=== PATIENT | female | born 2000 ===

== ENCOUNTER 2022-05-17 19:54 | Outpatient (CLI) | payer OTHER ==
[2022-05-17] MEDS ORDERED: LACTATED RINGERS 1,000 ML IV ONE (23:51)
[2022-05-17] MEDS ORDERED: BENZOCAINE/MENTHOL 20/0.5% TOP SPRAY 56 GM TP PRN (23:56)
== END 2022-05-18 00:25 | disposition home or self-care (01) ==
LOC: TRG 19:54 → APU 19:58 → TRG 05-18 00:25
PROVIDERS: ATTEND Obstetrics & Gynecology
DX: O42.92 Full-term premature rupture of membranes, unspecified as to length of time between rupture and onset of labor (principal); O26.893 Other specified pregnancy related conditions, third trimester; R10.2 Pelvic and perineal pain; Z3A.30 30 weeks gestation of pregnancy
CPT/HCPCS: 59025

== ENCOUNTER 2022-06-02 20:10 | Outpatient (CLI) | payer OTHER ==
[2022-06-02] MEDS ORDERED: LACTATED RINGERS 500 ML IV ONE (22:00)
[2022-06-02 23:01] LABS: Bacteria,Urine 3+ /HPF (Negative); Bilirubin,Urine Moderate (Negative); Color,Urine Colorless (Yellow); Hyaline Casts,Urine 1 /LPF; Mucus,Urine FEW /HPF
[2022-06-02 23:02] LABS: Blood,Urine Small (Negative); PH,Urine 7.5 (5.0-7.0); Protein,Urine <15 mg/dL mg/dL (Negative); Urobilinogen,Urine 0.2 mg/dL (<2.0)
[2022-06-02 23:04] LABS: Ictotest,Urine Negative (Negative)
== END 2022-06-02 23:25 | disposition home or self-care (01) ==
LOC: TRG 20:10 → APU 20:13 → TRG 23:25
PROVIDERS: ATTEND Obstetrics & Gynecology
DX: O47.03 False labor before 37 completed weeks of gestation, third trimester (principal); Z3A.32 32 weeks gestation of pregnancy
CPT/HCPCS: 36415; 59025; 81001; 84112; 87086

== ENCOUNTER 2022-07-22 19:17 | Inpatient (IN) | payer OTHER ==
--- NOTE | 2022-07-22 20:49 | History and Physical Report ---
History of Present Illness Date of examination: 07/22/22 Date of admission: 07/22/22 19:17 History of present illness: Patient presents to the office this a.m. with complaints of decreased movement patient with a nonreactive NST and has been admitted for labor induction at 40 weeks. Menstrual History Regularity: irregular Duration: 5-7 LMP: 10/15/2021 LMP reliability: definite LMP character: normal test type: urine test Date: 12/22/2021 BC at conception: none Planned ? no EDC Calculations LMP: 07/22/2022 EDC Confirmation: 07/22/2022 Past History : 3 Term Births: 2 Premature Births: 0 Living Children: 2 Para: 2 Mult. Births: 0 Prev : 0 Prev. attempt? 0 Aborta: 0 Elect. Ab: 0 Spont. Ab: 0 Ectopics: 0 # 1 Delivery date: 2019 Weeks Gestation: 37 labor: no Delivery type: Hours of labor: 12 Anesthesia type: epidural weight: 6lbs # 2 Delivery date: 2020 Weeks Gestation: 41 labor: no Delivery type: Hours of labor: 12 Anesthesia type: epidural weight: 6lbs Past Medical History: Negative Past Medical History Past Surgical History: negative Family History Summary: First Degree Blood Relative - Has No Known Family History - Entered On: 12/22/2021 Social History: Patient is single Smoking History: Patient has never smoked. Risk Factors: Smoked Tobacco Use: Never smoker Smokeless Tobacco Use: Never Passive Smoke Exposure: no HIV High Risk Behavior: no Exercise: no Seatbelt Use: 100 % No Dietary Counseling Reason: pn yes Alcohol Use: no Drug Use: no Past Medical History Anesthesia Complications: negative Anemia: negative Autoimmune Disorder: negative Bleeding Disorder: negative Blood Transfusions: negative Breast Disease: negative Diabetes: negative Heart Disease: negative Hypertension: negative Hepatitis/Liver Disease: negative Kidney Disease/UTI: negative Neurologic/Epilepsy/Migraines: negative Phlebitis/Varicosities: negative Psychiatric: negative Pulmonary Disease/Asthma: negative Thyroid Disease: negative Hospitalizations: negative Surgery (Non-batchmaker): negative Abnormal PAP: negative DELORES Exposure: negative Infertility: negative Uterine Anomaly: negative Uterine Surgery (not C/S): negative Other Gynecologic Problems: negative Social Hx: Patient is single Smoking History: Patient has never smoked. Infection History Hx of STD: none HIV Risk Eval: no Personal hx. of genital herpes: no Partner hx. of genital herpes: no Rash, Viral, or Febrile illness since last LMP? no Genetic History Congenital Heart Defect: Mom: no Dad: no Devaughn Disease: Mom: no Dad: no Thalassemia Mom: no Dad: no Neural Tube Defect Mom: no Dad: no Down's Syndrome Mom: no Dad: no Steven-Sachs Mom: no Dad: no Sickle Cell Disease/Trait Mom: no Dad: no Hemophilia Mom: no Dad: no Muscular Dystrophy Mom: no Dad: no Cystic Fibrosis Mom: no Dad: no [place] Chorea Mom: no Dad: no Mental Retardation Mom: no Dad: no Fragile X Mom: no Dad: no Other Genetic/Chromosomal Disorder Mom: no Dad: no Child w/other defect Mom: no Dad: no Enviromental Exposures Xray Exposure: no Medication, drug, or alcohol use since LMP: no Chemical/Other Exposure: no Exposure to Cat Liter: no Hx of Parvovirus (Fifth Disease): no Occupational Exposure to Children: none Active Medications (reviewed today): ondansetron 8 mg tablet,disintegrating (ondansetron) 1 tablet by mouth every twelve hours Plus 29 mg iron- 1 mg tablet (pnv,calcium 72-iron,carb-folic) 1 tablet by mouth once a day Current Allergies (reviewed today): No known allergies Past History Past Medical History: other (SEE HPI) [employer]ACH History: other (SEE HPI) Family/Genetic History: other (SEE HPI) Social history: other (SEE HPI) - Obstetrical History Expected Date of Delivery: 07/15/22 Actual Gestation: 41 Week(s) 0 Day(s) : 3 Para: 2 Hx # Term Pregnancies: 2 Number of Pregnancies: 0 Spontaneous Abortions: 0 Induced : 0 Number of Living Children: 2 Medications and Allergies Allergies Allergy/AdvReac Type Severity Reaction Status Date / Time No Known Allergies Allergy Unverified 02/03/22 22:54 Home Medications Medication Instructions Recorded Confirmed Last Taken Type Acetaminophen [Tylenol] 500 mg PO Q6HR PRN #30 tablet 02/04/22 Unknown Rx Benzocaine/Menthol [Dermoplast] 200 spray TP TID #1 can 05/17/22 Unknown Rx Lidocain2.5%/Prilocai2.5% [Emla] 5 gm TP BID #1 tube 05/17/22 Unknown Rx Terconazole [Terazol 7] 45 gm VG HS #3 05/18/22 Unknown Rx - Vital Signs Vital signs: Vital Signs Pulse BP Pulse Ox 85 120/60 98 07/22/22 19:38 07/22/22 19:38 07/22/22 19:38 Temp Pulse Resp BP Pulse Ox 98.1 F 99 H 14 101/59 96 07/22/22 19:41 07/22/22 20:43 07/22/22 19:41 07/22/22 20:41 07/22/22 20:43 - Physical Exam Breasts: Positive: deferred Cardiovascular: Regular rate Lungs: Positive: Normal air movement Abdomen: Positive: normal appearance, soft Vagina: Positive: normal moisture. Negative: discharge Extremities: Positive: edema - Obstetrical Uterine Contraction Monitor Mode: Palpation Uterine Contraction Pattern: Absent Uterine Tone Measurement Phase: Resting Results Result Diagrams: 07/22/22 20:00 All other labs normal. Assessment and Plan - Patient Problems (1) Decreased movement Current Visit: Yes Status: Acute Qualifiers: Fetus number: single or unspecified fetus Trimester: third trimester Bubba lified Code(s): O36.8130 - Decreased movements, third trimester, not applicable or unspecified Plan to address problem: Patient be admitted for serial induction. She will receive Cervidil this evening with plans of starting Pitocin in a.m. per protocol. We will watch her on tracing closely. (2) 40 weeks gestation of Current Visit: Yes Status: Acute (3) Abnormal test Current Visit: Yes Status: Acute
[2022-07-22] MEDS ORDERED: DINOPROSTONE 10 MG VAG SUPP VG ONE (20:50)
[2022-07-22] MEDS ORDERED: LIDOCAINE (2%) 20 MG/1 ML VIAL 20 ML MDV INFILTRATI ONE (20:50)
[2022-07-22] MEDS ORDERED: BUTORPHANOL 2 MG/1 ML INJ IV PRN ×2 (20:50)
[2022-07-22] MEDS ORDERED: TERBUTALINE 1 MG/1 ML INJ SUB-Q PRN (20:50)
[2022-07-22] MEDS ORDERED: ACETAMINOPHEN 325 MG TAB PO PRN (20:50)
[2022-07-22] MEDS ORDERED: PROMETHAZINE 25 MG TAB PO PRN (20:50)
[2022-07-22] MEDS ORDERED: ePHEDrine SULFATE 50 MG/1 ML INJ IV PRN (20:50)
[2022-07-22] MEDS ORDERED: MINERAL OIL 30 ML ORAL LIQD PO PRN (20:50)
[2022-07-22] MEDS ORDERED: LACTATED RINGERS 1,000 ML IV SCH (21:00)
[2022-07-22] MEDS ORDERED: OXYTOCIN DRIP 30 UNITS/500 ML BAG IV SCH (21:00)
[2022-07-22 21:50] LABS: Hematocrit 38.1 % (30.3-42.9); Mean Corpuscular HGB Conc 34 % (30-34); Mean Corpuscular Volume 88 fl (79-97); Platelet Count 260 K/mm3 (140-440); Red Blood Count 4.33 M/mm3 (3.65-5.03); Red Cell Distribution Width 15.1 % (13.2-15.2)
--- NOTE | 2022-07-23 08:38 | Progress Note ---
Assessment and Plan Cervidil removed, plan for AM care and breakfast, then start pitocin. - Patient Problems (1) 40 weeks gestation of Current Visit: Yes Status: Acute (2) Abnormal test Current Visit: Yes Status: Acute Subjective - Subjective Date of service: 07/23/22 Principal diagnosis: IUP @ 40+1; IOL decreasedFM Patient reports: movement normal, contractions Objective - Vital Signs Vital Signs: Vital Signs - 12hr 07/22/22 07/22/22 07/22/22 20:38 20:41 20:43 Temperature Pulse Rate 89 84 99 H Respiratory Rate Blood Pressure 101/59 O2 Sat by Pulse 97 96 Oximetry 07/22/22 07/22/22 07/22/22 20:48 20:53 20:58 Temperature Pulse Rate 99 H 86 85 Respiratory Rate Blood Pressure O2 Sat by Pulse 97 96 97 Oximetry 07/22/22 07/22/22 07/22/22 21:03 21:08 21:10 Temperature Pulse Rate 91 H 82 80 Respiratory Rate Blood Pressure 109/62 O2 Sat by Pulse 96 97 Oximetry 07/22/22 07/22/22 07/22/22 21:13 21:18 21:23 Temperature Pulse Rate 93 H 76 87 Respiratory Rate Blood Pressure O2 Sat by Pulse 97 96 97 Oximetry 07/22/22 07/22/22 07/22/22 21:28 21:42 21:44 Temperature Pulse Rate 80 85 81 Respiratory Rate Blood Pressure 113/64 O2 Sat by Pulse 96 99 Oximetry 07/22/22 07/22/22 07/22/22 21:47 21:52 21:57 Temperature Pulse Rate 85 82 89 Respiratory Rate Blood Pressure O2 Sat by Pulse 96 96 96 Oximetry 07/22/22 07/22/22 07/22/22 22:02 22:07 22:12 Temperature Pulse Rate 86 95 H 80 Respiratory Rate Blood Pressure O2 Sat by Pulse 96 96 96 Oximetry 07/22/22 07/22/22 07/22/22 22:14 22:17 22:22 Temperature Pulse Rate 86 88 87 Respiratory Rate Blood Pressure 109/57 O2 Sat by Pulse 96 97 Oximetry 07/22/22 07/22/22 07/22/22 22:27 22:32 22:37 Temperature Pulse Rate 86 87 83 Respiratory Rate Blood Pressure O2 Sat by Pulse 97 97 97 Oximetry 07/22/22 07/22/2222 22:42 22:46 22:47 Temperature Pulse Rate 83 84 99 H Respiratory Rate Blood Pressure 109/58 O2 Sat by Pulse 97 97 Oximetry 07/22/22 07/22/22 07/22/22 22:52 22:57 23:02 Temperature Pulse Rate 83 91 H 89 Respiratory Rate Blood Pressure O2 Sat by Pulse 97 97 97 Oximetry 07/22/22 07/22/22 07/22/22 23:07 23:12 23:14 Temperature Pulse Rate 97 H 90 81 Respiratory Rate Blood Pressure 109/60 O2 Sat by Pulse 97 97 Oximetry 07/22/22 07/22/22 07/22/22 23:17 23:22 23:27 Temperature Pulse Rate 80 89 87 Respiratory Rate Blood Pressure O2 Sat by Pulse 97 96 97 Oximetry 07/22/22 07/22/22 07/22/22 23:32 23:37 23:40 Temperature 98 F Pulse Rate 81 103 H Respiratory 16 Rate Blood Pressure O2 Sat by Pulse 96 96 99 Oximetry 07/22/22 07/22/22 07/22/22 23:42 23:45 23:47 Temperature Pulse Rate 95 H 83 79 Respiratory Rate Blood Pressure 101/56 O2 Sat by Pulse 97 97 Oximetry 07/22/22 07/22/22 07/23/22 23:52 23:57 00:02 Temperature Pulse Rate 88 103 H 91 H Respiratory Rate Blood Pressure O2 Sat by Pulse 97 96 97 Oximetry 07/23/22 07/23/22 07/23/22 00:07 00:12 00:16 Temperature Pulse Rate 93 H 85 78 Respiratory Rate Blood Pressure 105/57 O2 Sat by Pulse 98 97 Oximetry 07/23/22 07/23/22 07/23/22 00:17 00:22 00:27 Temperature Pulse Rate 92 H 85 98 H Respiratory Rate Blood Pressure O2 Sat by Pulse 97 96 96 Oximetry 07/23/22 07/23/22 07/23/22 00:32 00:37 00:42 Temperature Pulse Rate 97 H 87 91 H Respiratory Rate Blood Pressure O2 Sat by Pulse 97 97 96 Oximetry 07/23/22 07/23/22 07/23/22 00:44 00:47 00:52 Temperature Pulse Rate 86 91 H 95 H Respiratory Rate Blood Pressure 113/64 O2 Sat by Pulse 97 97 Oximetry 07/23/22 07/23/22 07/23/22 00:57 01:02 01:07 Temperature Pulse Rate 106 H 98 H 99 H Respiratory Rate Blood Pressure O2 Sat by Pulse 97 97 98 Oximetry 07/23/22 07/23/22 07/23/22 01:12 01:16 01:17 Temperature Pulse Rate 87 100 H 102 H Respiratory Rate Blood Pressure 114/78 O2 Sat by Pulse 96 97 Oximetry 07/23/22 07/23/22 07/23/22 01:22 01:27 01:32 Temperature Pulse Rate 83 89 92 H Respiratory Rate Blood Pressure O2 Sat by Pulse 96 96 97 Oximetry 07/23/22 07/23/22 07/23/22 01:37 01:42 01:44 Temperature Pulse Rate 91 H 86 98 H Respiratory Rate Blood Pressure 122/62 O2 Sat by Pulse 97 96 Oximetry 07/23/22 07/23/22 07/23/22 01:47 01:52 01:57 Temperature Pulse Rate 98 H 87 81 Respiratory Rate Blood Pressure O2 Sat by Pulse 95 95 96 Oximetry 07/23/22 07/23/22 07/23/22 02:02 02:07 02:12 Temperature Pulse Rate 94 H 88 81 Respiratory Rate Blood Pressure O2 Sat by Pulse 96 96 95 Oximetry 07/23/22 07/23/22 07/23/22 02:14 02:17 02:22 Temperature Pulse Rate 83 94 H 90 Respiratory Rate Blood Pressure 113/68 O2 Sat by Pulse 97 97 Oximetry 07/23/22 07/23/22 07/23/22 02:27 02:32 02:37 Temperature Pulse Rate 87 85 78 Respiratory Rate Blood Pressure O2 Sat by Pulse 96 96 96 Oximetry 07/23/22 07/23/22 07/23/22 02:42 02:44 02:47 Temperature Pulse Rate 86 75 82 Respiratory Rate Blood Pressure 91/52 O2 Sat by Pulse 96 97 Oximetry 07/23/22 07/23/22 07/23/22 02:52 02:57 03:02 Temperature Pulse Rate 78 82 83 Respiratory Rate Blood Pressure O2 Sat by Pulse 96 96 96 Oximetry 07/23/22 07/23/22 07/23/22 03:07 03:12 03:15 Temperature Pulse Rate 86 82 90 Respiratory Rate Blood Pressure 92/54 O2 Sat by Pulse 95 96 Oximetry 07/23/22 07/23/22 07/23/22 03:17 03:22 03:27 Temperature Pulse Rate 79 87 80 Respiratory Rate Blood Pressure O2 Sat by Pulse 97 97 98 Oximetry 07/23/22 07/23/22 07/23/22 03:32 03:37 03:42 Temperature Pulse Rate 84 85 83 Respiratory Rate Blood Pressure O2 Sat by Pulse 97 97 97 Oximetry 07/23/22 07/23/22 07/23/22 03:46 03:47 03:52 Temperature Pulse Rate 79 97 H 92 H Respiratory Rate Blood Pressure 106/64 O2 Sat by Pulse 97 97 Oximetry 07/23/22 07/23/22 07/23/22 03:57 04:02 04:07 Temperature Pulse Rate 76 81 77 Respiratory Rate Blood Pressure O2 Sat by Pulse 96 97 97 Oximetry 07/23/22 07/23/22 07/23/22 04:12 04:14 04:17 Temperature Pulse Rate 75 82 80 Respiratory Rate Blood Pressure 110/60 O2 Sat by Pulse 97 97 Oximetry 07/23/22 07/23/22 07/23/22 04:22 04:27 04:32 Temperature Pulse Rate 82 80 79 Respiratory Rate Blood Pressure O2 Sat by Pulse 96 96 97 Oximetry 07/23/22 07/23/22 07/23/22 04:37 04:42 04:44 Temperature Pulse Rate 91 H 98 H 80 Respiratory Rate Blood Pressure 110/60 O2 Sat by Pulse 96 96 Oximetry 07/23/22 07/23/22 07/23/22 04:47 04:52 04:57 Temperature Pulse Rate 91 H 86 84 Respiratory Rate Blood Pressure O2 Sat by Pulse 97 96 95 Oximetry 07/23/22 07/23/22 07/23/22 05:02 05:07 05:12 Temperature Pulse Rate 108 H 83 86 Respiratory Rate Blood Pressure O2 Sat by Pulse 95 96 96 Oximetry 07/23/22 07/23/22 07/23/22 05:16 05:17 05:22 Temperature Pulse Rate 91 H 86 88 Respiratory Rate Blood Pressure 105/60 O2 Sat by Pulse 95 97 Oximetry 07/23/22 07/23/22 07/23/22 05:23 05:27 05:32 Temperature 98 F Pulse Rate 79 73 Respiratory 18 Rate Blood Pressure O2 Sat by Pulse 97 97 97 Oximetry 07/23/22 07/23/22 07/23/22 05:37 05:42 05:46 Temperature Pulse Rate 88 78 74 Respiratory Rate Blood Pressure 108/59 O2 Sat by Pulse 97 96 Oximetry 07/23/22 07/23/22 07/23/22 05:47 05:52 05:57 Temperature Pulse Rate 82 80 78 Respiratory Rate Blood Pressure O2 Sat by Pulse 96 96 96 Oximetry 07/23/22 07/23/22 07/23/22 06:02 06:07 06:12 Temperature Pulse Rate 80 82 75 Respiratory Rate Blood Pressure O2 Sat by Pulse 96 97 97 Oximetry 07/23/22 07/23/22 07/23/22 06:15 06:17 06:22 Temperature Pulse Rate 73 80 79 Respiratory Rate Blood Pressure 104/59 O2 Sat by Pulse 96 96 Oximetry 07/23/22 07/23/22 07/23/22 06:27 06:32 06:37 Temperature Pulse Rate 77 73 82 Respiratory Rate Blood Pressure O2 Sat by Pulse 97 96 97 Oximetry 07/23/22 07/23/22 07/23/22 06:42 06:44 06:47 Temperature Pulse Rate 91 H 87 92 H Respiratory Rate Blood Pressure 103/65 O2 Sat by Pulse 95 96 Oximetry 07/23/22 07/23/22 07/23/22 06:52 06:57 07:02 Temperature Pulse Rate 81 79 76 Respiratory Rate Blood Pressure O2 Sat by Pulse 96 97 98 Oximetry 07/23/22 07/23/22 07/23/22 07:07 07:12 07:14 Temperature Pulse Rate 80 83 79 Respiratory Rate Blood Pressure 103/59 O2 Sat by Pulse 96 96 Oximetry 07/23/22 07/23/22 07/23/22 07:17 07:20 07:22 Temperature Pulse Rate 79 77 84 Respiratory Rate Blood Pressure O2 Sat by Pulse 97 94 96 Oximetry 07/23/22 07/23/22 07/23/22 07:25 07:27 07:32 Temperature Pulse Rate 91 H 84 82 Respiratory Rate Blood Pressure O2 Sat by Pulse 94 95 95 Oximetry 07/23/22 07/23/22 07/23/22 07:37 07:42 07:46 Temperature Pulse Rate 85 76 65 Respiratory Rate Blood Pressure 103/51 O2 Sat by Pulse 96 96 Oximetry 07/23/22 07/23/22 07/23/22 07:47 07:52 07:57 Temperature Pulse Rate 87 83 88 Respiratory Rate Blood Pressure O2 Sat by Pulse 96 96 97 Oximetry 07/23/22 07/23/22 07/23/22 08:02 08:07 08:12 Temperature Pulse Rate 82 79 89 Respiratory Rate Blood Pressure O2 Sat by Pulse 95 96 97 Oximetry 07/23/22 07/23/22 07/23/22 08:15 08:17 08:22 Temperature Pulse Rate 78 82 87 Respiratory Rate Blood Pressure 90/50 O2 Sat by Pulse 97 96 Oximetry 07/23/22 07/23/22 08:27 08:32 Temperature Pulse Rate 86 77 Respiratory Rate Blood Pressure O2 Sat by Pulse 95 98 Oximetry - Exam Breasts: normal Cardiovascular: Regular rate Lungs: Normal air movement Abdomen: Present: normal appearance, soft Vulva: both: normal Uterus: Present: normal, fundal height above umbilicus FHR: category 1 Uterine Contraction Monitor Mode: External Cervical Dilatation: 2 (posterior) Cervical Effacement Percentage: 70 station: -2 Uterine Contraction Pattern: Regular Uterine Tone Measurement Phase: Contraction Uterine Contraction Intensity: Moderate Extremities: normal Deep Tendon Reflex Grade: Normal +2 - Labs Labs: Abnormal Labs 07/22/22 20:00 WBC 11.1 H Laboratory Results - last 24 hr 07/22/22 07/22/22 20:00 20:00 WBC 11.1 H RBC 4.33 Hgb 13.0 Hct 38.1 MCV 88 MCH 30 MCHC 34 RDW 15.1 Plt Count 260 Blood Type O POSITIVE Antibody Screen Negative
[2022-07-23] MEDS ORDERED: OXYTOCIN DRIP 30 UNITS/500 ML BAG IV SCH (10:00)
[2022-07-23] MEDS ORDERED: fentaNYL 100 MCG/2 ML INJ ONE (14:40)
[2022-07-23] MEDS ORDERED: ePHEDrine SULFATE 50 MG/1 ML INJ IV PRN (15:19)
[2022-07-23] MEDS ORDERED: NALOXONE 0.4 MG/1 ML INJ IV PRN (15:19)
--- NOTE | 2022-07-23 15:19 | Anesthesia Consultation ---
Anesthesia Consult and Med Hx Date of service: 07/23/22 - Airway Anesthetic Teeth Evaluation: Good ROM Head & Neck: Adequate Mental/Hyoid Distance: Adequate Mallampati Class: Class II Intubation Access Assessment: Probably Good - Pre-Operative Health Status ASA Pre-Surgery Classification: ASA2 Proposed Anesthetic Plan: Epidural, Spinal - Pulmonary Hx Asthma: No - Cardiovascular System Hx Hypertension: No - Central Nervous System Hx Seizures: No Hx Psychiatric Problems: No - Endocrine Hx Renal Disease: No Hx Hypothyroidism: No Hx Hyperthyroidism: No - Hematic Hx Anemia: No Hx Sickle Cell Disease: No - Other Systems Hx Alcohol Use: No
--- NOTE | 2022-07-23 15:21 | Progress Note ---
Labor Epidural - Labor Epidural Start Time: 14:55 Stop Time: 15:08 Performed by:: SHIVANI GONZALEZ Procedure: Combined Spinal-Epidural Patient is requesting epidural for labor and pain. H&P, labs were reviewed. Patient ID confirmed, all questions and concerns were answered, and consent was signed. Timeout was performed at bedside. Patient in sitting position. Sterile prep and drape was performed. 3ml of 1% lidocaine skin wheal at L3- L4 interspace. 17-gauge Tuohy epidural needle was advanced to loss of resistance with saline technique cm x 1 attempt. 25G spinal needle introduced through epidural needle to the spinal space. Clear CSF. Injected .1ml of Precedex in the spinal space. Negative CSF negative blood. Epidural catheter advanced to 15 centimeters. Negative aspiration, test dose 3ml 1.5% Lidocaine with epi - negative. Sterile dressing applied. Patient tolerated procedure.
[2022-07-23] MEDS ORDERED: fentaNYL-BUPIV 2 MCG/ML-0.125% 200 MCG/100 ML BAG EPIDURAL SCH (16:00)
--- NOTE | 2022-07-23 16:36 | Procedure Note ---
OB Delivery Note - Delivery Date of Delivery: 07/23/22 Wholesale Buyer: JOAN GANDHI (ELBA Khanna) Estimated blood loss: <100cc - Vaginal Delivery presentation: vertex Delivery position: OA Intrapartum events: none Delivery induction: cervidil Delivery augmentation: rupture of membranes, pitocin Delivery monitor: external FHT, external uterine Route of delivery: Delivery placenta: spontaneous Delivery cord: nuchal cord, 3 umbilical vessels Episiotomy: none Delivery laceration: none Anesthesia: epidural Delivery comments: viable baby boy over intact perienum, BEAU with tight nuchal cord somersaulted through. placed placed skin to skin on mother's abdomen. 3 vessel cord clamped and cut, cord blood collected. placenta del intact and complete. no lacerations to repair. mother and infant LDR stable. all counts correct. - Infant A at 1 minute: 8 at 5 minutes: 9 Gender: Male ("Bubba")
[2022-07-23] MEDS ORDERED: LANOLIN/ZINC/DIMETHICONE (LANSINOH) 7 GM TP PRN (20:36)
[2022-07-23] MEDS ORDERED: ONDANSETRON 4 MG/2 ML INJ IV PRN (20:36)
[2022-07-23] MEDS ORDERED: PROMETHAZINE 25 MG TAB PO PRN (20:36)
[2022-07-23] MEDS ORDERED: diphenhydrAMINE 25 MG CAP PO PRN (20:36)
[2022-07-23] MEDS ORDERED: ACETAMINOPHEN 325 MG TAB PO PRN (20:36)
[2022-07-23] MEDS ORDERED: MAGNESIUM HYDROXIDE (MOM) ORAL LIQD UDC PO PRN (20:36)
[2022-07-23] MEDS ORDERED: WITCH HAZEL/ GLYCERIN PAD TP PRN (20:36)
[2022-07-23] MEDS ORDERED: BENZOCAINE/MENTHOL 20/0.5% TOP SPRAY 56 GM TP PRN (20:36)
[2022-07-23] MEDS: FERROUS SULFATE 325 MG TAB PO SCH (22:08)
[2022-07-23] MEDS: IBUPROFEN 800 MG TAB PO SCH (22:09)
[2022-07-24] MEDS ORDERED: oxyCODONE /ACETAMINOPHEN 5-325MG TAB PO ONE (00:11)
[2022-07-24] MEDS: IBUPROFEN 800 MG TAB PO SCH ×4 (03:15→19:13)
[2022-07-24 06:14] LABS: Hematocrit 35.1 % (30.3-42.9); Hemoglobin 11.6 gm/dl (10.1-14.3)
[2022-07-24] MEDS ORDERED: PRENATAL VIT27-FE FUMARATE-FOLIC ACID VIT TAB PO SCH (10:00)
[2022-07-24] MEDS: FERROUS SULFATE 325 MG TAB PO SCH (10:45)
--- NOTE | 2022-07-24 11:12 | Discharge Summary ---
Providers - Providers Date of Admission: 07/22/22 19:17 Date of discharge: 07/24/22 Attending physician: DEVON SCHUMACHER Primary care physician: DEVON SCHUMACHER Hospitalization Reason for admission: IOL Condition: Good Pertinent studies: post delivery H&H 11.6/35.1 Procedures: Hospital course: uncomplicated and course Disposition: 01 HOME / SELF CARE / HOMELESS Final Discharge Diagnosis (Prints w/discharge instructions): vaginal Time spent for discharge: 20 - Discharge Diagnoses (1) (normal spontaneous vaginal delivery) Status: Acute Core Measure Documentation - Palliative Care Palliative Care/ Comfort Measures: Not Applicable - Core Measures Any of the following diagnoses?: none Exam - Constitutional Vitals: Temp Pulse Resp BP Pulse Ox 97.8 F 77 19 107/71 99 07/24/22 08:14 07/24/22 08:14 07/24/22 08:14 07/24/22 08:14 07/24/22 09:05 General appearance: Present: no acute distress, well-nourished - EENT Eyes: Present: PERRL ENT: hearing intact, clear oral mucosa - Neck Neck: Present: supple, normal ROM - Respiratory Respiratory effort: normal Respiratory: bilateral: CTA - Cardiovascular Rhythm: regular Heart Sounds: Absent: rub, click - Extremities Extremities: No edema Peripheral Pulses: within normal limits - Abdominal General gastrointestinal: Present: soft, non-tender, non-distended, normal bowel sounds Female genitourinary: Present: normal - Integumentary Integumentary: Present: clear, warm, dry - Musculoskeletal Musculoskeletal: gait normal, strength equal bilaterally - Psychiatric Psychiatric: appropriate mood/affect, intact judgment & insight - Neurologic Neurologic: CNII-XII intact, moves all extremities - Additional findings Additional findings: lochia scant, fundus firm Plan Activity: no restrictions Diet: regular Follow up with: DEVON SCHUMACHER MD [Primary Care Provider] - 6 Weeks Prescriptions: Docusate Sodium [Colace] 100 mg PO BID PRN #60 capsule PRN Reason: Constipation Ibuprofen [Motrin 800 MG tab] 800 mg PO Q8HR PRN #30 tablet PRN Reason: Pain
[2022-07-24] MEDS ORDERED: ACETAMINOPHEN 500 MG TAB PO ONE (12:40)
--- NOTE | 2022-07-24 14:05 | Post Anesthesia Evaluation ---
- Post Anesthesia Evaluation Patient Participated: Yes Airway Patent: Yes Stable Respiratory Function: Yes Nausea/Vomiting: No Temp > 96.8F: Yes Pain Manageable: Yes Adequeate Hydration: Yes Anesthesia Complications: No Block Receding Appropriately: Yes Patient on Ventilator: No
[2022-07-24 21:58] VITALS: BP 104/48
== END 2022-07-24 22:00 | disposition home or self-care (01) | DRG 807 ==
LOC: LD 19:17 → OB 07-23 20:31
PROVIDERS: ADMIT Obstetrics & Gynecology; ATTEND Obstetrics & Gynecology
PROC: 10E0XZZ Delivery of Products of Conception, External Approach (ICD-10-PCS; principal; 2022-07-23)
PROC: 3E0P7VZ Introduction of Hormone into Female Reproductive, Via Natural or Artificial Opening (ICD-10-PCS; 2022-07-23)
PROC: 3E0R3BZ Introduction of Anesthetic Agent into Spinal Canal, Percutaneous Approach (ICD-10-PCS; 2022-07-23)
PROC: 00HU33Z Insertion of Infusion Device into Spinal Canal, Percutaneous Approach (ICD-10-PCS; 2022-07-23)
DX: O36.8130 Decreased fetal movements, third trimester, not applicable or unspecified (principal); Z37.0 Single live birth; Z20.822 Contact with and (suspected) exposure to COVID-19; Z3A.40 40 weeks gestation of pregnancy; O69.81X0 Labor and delivery complicated by cord around neck, without compression, not applicable or unspecified
CPT/HCPCS: 36415; 59200; 85014; 85018; 85027; 86850; 86900; 86901; 96360; G0378; J2590; J3010; U0003